=== PATIENT | female | born 1955 | race Caucasian/White ===

== ENCOUNTER 2024-05-10 14:56 | Emergency (ER) | payer OTHER, SELFPAY ==
[2024-05-10 15:01] VITALS: BP 151/67; PULSE 89; RESP 18; TEMP 37.1; O2SAT 99; BMI 29.3
--- NOTE | 2024-05-10 17:03 | ED_ITS ---
HPI - Back Pain/Injury General Chief Complaint: Back Pain/Injury Stated Complaint: Back pain Time Seen by Provider: 05/10/24 17:03 Source: patient and EMS Mode of arrival: EMS Limitations: no limitations History of Present Illness HPI Narrative: 68-year-old female with report of a fall on Sunday. Patient fell backwards she states she sort of tripped for words but turned to fall on her left side landing on her left back/ribs. She is got pain in the front on the left and the back. She states minimal midline pain but does have some thoracic. She has had persistent pain she states she had x-rays with her primary care and [facility]. She states the for were not completed by Sunday evening. She has had persistent pain she has been taking Tylenol 650 mg every 7 hours and tramadol 100 mg every 6 hours. Pain has been persistent. She states it is worse with movement, cough or sneeze. She denies any fevers, she denies hitting her head no neck pain, no cervical or lumbar pain. Patient denies any loss of bowel or bladder control no numbness tingling or weakness. She states no anticoagulants. No known drug allergies. No regular tobacco, occasional alcohol, no recreational drugs Related Data Previous Rx's Medication Instructions Recorded oxycodone 5 mg tablet 5 mg PO Q6H PRN pain #20 tabs 05/10/24 Allergies Allergy/AdvReac Type Severity Reaction Status Date / Time No Known Drug Allergies Allergy Verified 05/10/24 15:00 Review of Systems Review of Systems ROS Unobtainable: All systems reviewed & are unremarkable except as noted in HPI and below Patient History Social History Smoking Status: Never smoker Smoking Status: Never smoker alcohol intake frequency: a few times a week Substance Use Type: does not use Exam Narrative Exam Narrative: GEN: Patient appears in [id number] distress. Patient is comfortable with any kind of movement but is fairly comfortable while lying flat. HEAD: No evidence of trauma, no raccoon/Kate sign. NECK: Nontender, painless range of motion, trachea midline Negative Nexus criteria, no midline line tenderness, distracting injury, altered mental status, neuro deficit, recent EtOH. EYES: PERRLA, EOMI ENT: External inspection normal, trachea is midline, Nares are clear, no septal hematoma, no dental or oral injury, airway is normal and with normal occlusion, No bony tenderness RESP: Chest is tender on the left anterior proximally rib 5 6 as well as posterior rib 5 6, and has symmetric movement, no ecchymosis, breath sounds are normal no crackles, wheezes or rales CVS: Heart sounds are normal, no murmur noted, No JVD. ABG/GI: Nontender, soft, normal bowel sounds, no distention, no organomegaly, pelvic rock is negative= NEURO: Oriented AOx3, neuro is grossly intact, sensation and motor is normal all 4 extremities moving, cranial nerves II through XII are intact, GCS is 15 PSYCH: Normal mood and affect SKIN: Intact, warm and dry, no crepitus and without decubitus BACK: Vertebral tenderness except for Mild T5-6 thoracic, no CVA tenderness, no step-off's, no crepitus EXT: Atraumatic, hips are nontender, no pedal edema, normal color and temper ature, normal range of motion of extremities with normal tendon exam, 2+ pulses in all four extremities Initial Vital Signs Initial Vital Signs: Vital Signs Temperature 98.7 F 05/10/24 15:01 Pulse Rate 89 05/10/24 15:01 Respiratory Rate 18 05/10/24 15:01 Blood Pressure 151/67 H 05/10/24 15:01 Pulse Oximetry 99 05/10/24 15:01 Oxygen Delivery Method Room Air 05/10/24 15:01 Course Orders Ordered: Discontinued Medications Acetaminophen (Acetaminophen 325 Mg Tablet) 975 mg PO NOW ONE Stop: 05/10/24 17:21 Last Admin: 05/10/24 18:02 Dose: 975 mg Documented By: EMIL Oxycodone HCl (Oxycodone Ir 10 Mg Tablet) 10 mg PO NOW ONE Stop: 05/10/24 17:22 Last Admin: 05/10/24 18:02 Dose: 10 mg Documented By: EMIL Vital Signs Vital signs: Vital Signs - 8 hr 05/10/24 15:01 Temperature 98.7 F Pulse Rate 89 Respiratory Rate 18 Blood Pressure 151/67 H Pulse Oximetry 99 Oxygen Delivery Method Room Air MDM - Back Pain/Injury Imaging Data CT scan - chest: Radiologist's Impression: [address] [address] [address] Scan Report Signed Patient: Machelle Do MR#: [id number] : 1955 Acct:[id number] Age/Sex: 68 / F Date of Service: 05/10/24 Loc: ED Accession Number: [id number] Procedure: CT chest wo con Ordering Provider: Bonny Han D.O. PROCEDURE: CT CHEST WO CON INDICATIONS: left rib ?fx, thoracic back pain, fall on back 2 days TECHNIQUE: Noncontrast 5 mm thick sections acquired from the pulmonary apices to the posterior costophrenic angles. 1 mm lung window, 5 mm thick coronal and sagittal and 7 mm axial MIP reformats were then acquired. For radiation dose reduction, the following was used: automated exposure control, adjustment of mA and/or kV according to patient size. COMPARISON: None. FINDINGS: Image quality: Diagnostic. Lower Neck: No enlarged lymph nodes. Thyroid: Right thyroid nodule measuring 4.0 x 3.5 centimeters. Axillae: No enlarged lymph nodes. Chest Wall: Unremarkable. Bones: Minimally displaced left posterior 9th rib fracture. Minimally displaced left lateral sixth and 7th rib fractures.. Chronic right-sided rib fractures. Lungs and Pleura: Small left effusion. Left lower lobe atelectasis versus contusion. Heart: Heart size is normal. No pericardial effusion. Thoracic Vessels: The aorta and pulmonary arteries demonstrate normal size. Mediastinum and Jessica: No enlarged lymph nodes. Esophagus: No wall thickening. No hiatal hernia. Upper Abdomen: Visualized upper abdomen solid organs and bowel loops appear normal. IMPRESSION: 1. Minimally displaced left lateral 6th and 7th and posterior 9th rib fractures. 2. Small left pleural effusion. Left lower lobe atelectasis versus contusion. 3. Large right thyroid lobe nodule measuring 4 centimeters, recommend nonurgent thyroid ultrasound for further evaluation. Dictated by: Kevin Martinez M.D. on 05/10/2024 at 17:16 Approved by: Kevin Martinez M.D. on 05/10/2024 at 17:19 [facility] Narrative Medical decision making narrative: 60-year-old female with ground level fall had chest x-ray reportedly 2 days ago she has had persistent left rib pain anterior and posteriorly but also has some tenderness in the thoracic spine around 5. Discussed with patient we will obtain CT of her ribs but will also allow us to visualize her thoracic spine better. CT chest show ribs lateral 6th and 7th and left posterior 9th rib, chronic right-sided rib fractures small left pleural effusion left lower lobe atelectasis versus contusion as well as a right thyroid nodule that is 4 x 3 point cm. Patient is painful but has been tolerating fairly well here in the department, she has not hypoxic she is breathing well we will start stronger pain medication, incentive spirometer with strict return precautions. Discharge Plan Departure Patient Disposition: Home Clinical Impression: Multiple rib fractures, Pleural effusion on left, Nodule of right lobe of thyroid gland Instructions: DI for Rib Fracture Activity Restrictions/Additional Instructions: Your workup today does show left lateral 6th and 7th rib fractures as well as a left posterior 9th rib fracture. You also have small left pleural effusion and some atelectasis versus contusion. Make sure using an incentive spirometer once hourly while awake to help prevent pneumonia. You can take Tylenol up to a 1000 mg every 6 hours, you can also take ibuprofen up to 600 mg every 6 hours as tolerated. If inadequate for pain control you can take 1-2 tablets of oxycodone every 6 hours as needed. This medication can make you sleepy do not drive, perform hazardous activities or make any major decisions while taking it. This medication will make you constipated please take a stool softener such as colace once to twice daily until stools are soft and regular. Prescription sent to [facility] [place]. Please return for fevers, new or worsening chest pain, increasing shortness of breath, any productive cough or coughing up blood, lightheadedness or passing out or other new or concerning changes Prescriptions: New oxycodone 5 mg tablet 5 mg PO Q6H PRN (Reason: pain) Qty: 20 0RF Referrals: Miscellaneous,Doctor, MD [Primary Care Provider] - Stand Alone Forms: Patient Portal/API
--- NOTE | 2024-05-10 17:20 | DI.CT.S_ITS ---
PROCEDURE: CT CHEST WO CON INDICATIONS: left rib ?fx, thoracic back pain, fall on back 2 days TECHNIQUE: Noncontrast 5 mm thick sections acquired from the pulmonary apices to the posterior costophrenic angles. 1 mm lung window, 5 mm thick coronal and sagittal and 7 mm axial MIP reformats were then acquired. For radiation dose reduction, the following was used: automated exposure control, adjustment of mA and/or kV according to patient size. COMPARISON: None. FINDINGS: Image quality: Diagnostic. Lower Neck: No enlarged lymph nodes. Thyroid: Right thyroid nodule measuring 4.0 x 3.5 centimeters. Axillae: No enlarged lymph nodes. Chest Wall: Unremarkable. Bones: Minimally displaced left posterior 9th rib fracture. Minimally displaced left lateral sixth and 7th rib fractures.. Chronic right-sided rib fractures. Lungs and Pleura: Small left effusion. Left lower lobe atelectasis versus contusion. Heart: Heart size is normal. No pericardial effusion. Thoracic Vessels: The aorta and pulmonary arteries demonstrate normal size. Mediastinum and Jessica: No enlarged lymph nodes. Esophagus: No wall thickening. No hiatal hernia. Upper Abdomen: Visualized upper abdomen solid organs and bowel loops appear normal. IMPRESSION: 1. Minimally displaced left lateral 6th and 7th and posterior 9th rib fractures. 2. Small left pleural effusion. Left lower lobe atelectasis versus contusion. 3. Large right thyroid lobe nodule measuring 4 centimeters, recommend nonurgent thyroid ultrasound for further evaluation. Dictated by: Kevin Martinez M.D. on 05/10/2024 at 17:16 Approved by: Kevin Martinez M.D. on 05/10/2024 at 17:19
[2024-05-10] MEDS: ACETAMINOPHEN 325 MG TABLET 975 MG PO (18:02)
[2024-05-10] MEDS: OXYCODONE IR 10 MG TABLET PO (18:02)
--- NOTE | 2024-05-10 19:05 | PC.NURSE ---
Fall w/ rib pain. States she was at [facility] in [place] and was not told results of xrays. Pt endorses pain with movement.
[2024-05-10 19:06] VITALS: BP 140/73; PULSE 87; RESP 16; TEMP 37.3; O2SAT 98
== END 2024-05-10 19:07 | disposition home or self-care (01) ==
PROVIDERS: Emergency Provider Emergency Medicine
DX: S22.42XA Multiple fractures of ribs, left side, initial encounter for closed fracture (principal); J90 Pleural effusion, not elsewhere classified; E04.1 Nontoxic single thyroid nodule; W18.30XA Fall on same level, unspecified, initial encounter
CPT/HCPCS: 71250; 99283

== ENCOUNTER → 2024-07-07 13:06 | Outpatient (CLI) | payer OTHER, SELFPAY ==
[2024-07-07 15:29] LABS: Add Manual Diff / Slide Review NO; Basophils Absolute Auto 0 /uL (0-100); Basophils Percent Auto 0.4 % (0-2); Eosinophils Absolute Auto 100 /uL (0-450); Eosinophils Percent Auto 1.7 % (2-4); Hematocrit 37.7 % (36-46); Hemoglobin 12.6 g/dL (12.0-16.0); Lymphocytes Absolute Auto 1300 /uL (1100-4500); Lymphocytes Percent Auto 26.3 % (25-40); Mean Corpuscular HGB Conc 33.4 % (30-36); Mean Corpuscular Hemoglobin 28.7 PG (26-34); Mean Corpuscular Volume 85.8 fL (80-100); Monocytes Absolute Auto 300 /uL (0-900); Monocytes Percent Auto 5.5 % (3-14); Neutrophils Absolute Auto 3200 /uL (1500-7000); Neutrophils Percent Auto 66.1 % (50-75); Platelet Count 281 X10^3/uL (150-400); Red Blood Cell Count 4.39 X10^6/uL (4.0-5.2); Red Cell Distribution Width 14.3 % (11.6-14.8); White Blood Cell Count 4.9 X10^3/uL (4.5-11.0)
[2024-07-07 15:50] LABS: Alanine Aminotransferase 27 IU/L (<35); Albumin 4.1 g/dL (3.5-5.0); Albumin Globulin Ratio 1.6 (1.0-2.8); Alkaline Phosphatase 111 U/L (38-126); Aspartate Aminotransferase 35 IU/L (14-36); BUN Creatinine Ratio 24.3 (6-22); Bilirubin Total 0.6 mg/dL (0.2-1.3); Blood Urea Nitrogen 17 mg/dL (7-17); Calcium 8.9 mg/dL (8.4-10.2); Carbon Dioxide 25 mmol/L (22-32); Chloride 106 mmol/L (98-107); Cholesterol 222 mg/dL (140-199); Estimated Glomerular Filt Rate > 60 mL/min (>60); Globulin 2.6 g/dL (1.7-4.1); Glucose 80 mg/dL (80-110); HDL Cholesterol 84 mg/dL (40-60); HEMOLYSIS < 15 (0-50); LDL Cholesterol Calculated 115 mg/dL (<100); Potassium 3.8 mmol/L (3.4-5.1); Sodium 139 mmol/L (137-145); Total Protein 6.7 g/dL (6.3-8.2); Triglycerides 115 mg/dL (35-150)
[2024-07-07 22:36] LABS: Hemoglobin A1C% w Est Avg Glu 5.2 % (4.0-6.0)
== END ==
PROVIDERS: PCP Family Medicine; Referring Provider Family Medicine; Visit Provider Family Medicine
DX: E66.9 Obesity, unspecified (principal); Z13.6 Encounter for screening for cardiovascular disorders
CPT/HCPCS: 36415; 80053; 80061; 83036; 84443; 85025

== ENCOUNTER → 2024-10-23 13:19 | Outpatient (CLI) | payer OTHER, SELFPAY ==
--- NOTE | 2024-10-23 13:20 | DI.RAD.S_ITS ---
PROCEDURE: XR CHEST 2V INDICATIONS: Wet cough, prior rib fractures, HX L pleural effusion TECHNIQUE: 2 views of the chest were acquired. COMPARISON: [facility], CT, CT CHEST WO CON, 05/10/2024, 17:40. FINDINGS: Surgical changes and devices: None. Lungs and pleura: Lungs are clear. No pleural effusions or pneumothorax. Mediastinum: The cardiac contours are within normal limits. The aorta demonstrates calcification and tortuosity. Bones and chest wall: No suspicious bony abnormalities. Remote bilateral rib fractures can be seen. Age-appropriate bony degenerative changes are seen. Soft tissues appear unremarkable. IMPRESSION: No focal infiltrates are seen. No acute cardiopulmonary abnormality is seen. Additional findings: Remote bilateral rib fractures Dictated by: Abimael Osuna M.D. on 10/23/2024 at 12:53 Approved by: Abimael Osuna M.D. on 10/23/2024 at 12:54
== END ==
PROVIDERS: PCP Family Medicine; Referring Provider Physician Assistant Surgical; Visit Provider Physician Assistant Surgical
DX: R05.9 Cough, unspecified (principal); S22.32XS Fracture of one rib, left side, sequela; S22.31XS Fracture of one rib, right side, sequela
CPT/HCPCS: 71046

== ENCOUNTER → 2025-09-15 14:44 | Outpatient (CLI) | payer OTHER, SELFPAY ==
[2025-09-15 16:17] LABS: Influenza A - CEPHEID Flu A NEGATIVE (NEGATIVE); Influenza B - CEPHEID Flu B NEGATIVE (NEGATIVE)
[2025-09-15 16:18] LABS: COVID-19 CEPHEID 4-PLEX PCR Negative (Negative)
== END ==
PROVIDERS: PCP Family Medicine; Visit Provider Chiropractor
DX: R05.1 Acute cough (principal)
CPT/HCPCS: 87637